=== PATIENT | female | born 1970 | race Caucasian/White ===

== ENCOUNTER 2022-05-17 16:45 | Emergency (ER) | payer MEDICAID ==
[~2022-05-17] VITALS: Ht 165.1 cm; Wt 73.0 kg
[2022-05-17] MEDS ORDERED: ACETAMINOPHEN 325MG TABLET PO ONE (17:15)
[2022-05-17] MEDS ORDERED: MORPHINE SULFATE 10 MG/ML CPJ IM ONE (17:15)
[2022-05-17] MEDS ORDERED: LIDO700A15 TP (17:56)
[2022-05-17] MEDS ORDERED: ACET-2708 MT (17:56)
[2022-05-17] MEDS ORDERED: BACL-141 MT (17:56)
[2022-05-17 18:46] VITALS: BP 115/76
== END 2022-05-17 18:54 | disposition home or self-care (01) ==
LOC: ER 16:45
DX: S29.011A Strain of muscle and tendon of front wall of thorax, initial encounter (principal); M25.512 Pain in left shoulder; X50.0XXA Overexertion from strenuous movement or load, initial encounter; Y93.89 Activity, other specified; Y92.89 Other specified places as the place of occurrence of the external cause
CPT/HCPCS: 71045; 96372; 99283; J2270